=== PATIENT | female | born 1965 | race Caucasian/White ===

== ENCOUNTER 2017-10-22 09:52 | Emergency (ER) | payer OTHER, MEDICARE ==
[~2017-10-22] VITALS: Ht 152.4 cm; Wt 71.7 kg
[2017-10-22] MEDS ORDERED: OMEPRAZOLE MAGN20 MG PO (10:40)
[2017-10-22] MEDS ORDERED: OXYC1TAB11 (10:40)
[2017-10-22] MEDS ORDERED: METF500C PO (10:40)
[2017-10-22] MEDS ORDERED: SERT100 PO (10:41)
[2017-10-22] MEDS ORDERED: GLIP5ER PO (10:41)
[2017-10-22] MEDS ORDERED: Flonase 0.05% N16 GM (11:44)
[2017-10-22] MEDS ORDERED: Pataday2.5 ML BOTHEYES (11:44)
[2017-10-22] MEDS ORDERED: Sudogest30 MG PO (11:44)
== END 2017-10-22 11:58 | disposition home or self-care (01) ==
LOC: ER 09:52
DX: H10.10 Acute atopic conjunctivitis, unspecified eye (principal); J30.9 Allergic rhinitis, unspecified; Z79.84 Long term (current) use of oral hypoglycemic drugs; Z79.899 Other long term (current) drug therapy; E11.9 Type 2 diabetes mellitus without complications; Z87.891 Personal history of nicotine dependence
CPT/HCPCS: 96372; 99283; J1100